=== PATIENT | female | born 1950 | race Caucasian/White ===

== ENCOUNTER → 2018-01-14 | Outpatient (CLI) | payer BC, MEDICARE, MEDICAID ==
[~2018-01-14] MED LIST: CLON-528 PO; COR3.125T PO; CYAN100061 IM; DULO-31 PO; LEVO50TA67 PO; MSC30T PO; OMEP-84 PO; TOP25T PO; [UNRECOGNIZED DRUG - CODE] PO
== END | disposition home or self-care (01) ==
LOC: VAS 08:54
PROVIDERS: ATTEND Surgery
DX: R60.0 Localized edema (principal); F10.10 Alcohol abuse, uncomplicated; F17.200 Nicotine dependence, unspecified, uncomplicated; I10 Essential (primary) hypertension; J44.9 Chronic obstructive pulmonary disease, unspecified; K21.9 Gastro-esophageal reflux disease without esophagitis; E11.9 Type 2 diabetes mellitus without complications; Z79.899 Other long term (current) drug therapy; Z96.653 Presence of artificial knee joint, bilateral
CPT/HCPCS: 93970

== ENCOUNTER 2018-03-30 18:18 | Emergency (ER) | payer BC, MEDICARE, MEDICAID ==
[~2018-03-30] VITALS: Ht 175.3 cm; Wt 54.5 kg
[2018-03-30 18:24] VITALS: BP 165/93
== END 2018-03-30 21:57 | disposition home or self-care (01) ==
LOC: ER 18:19
DX: S50.12XA Contusion of left forearm, initial encounter (principal); S50.11XA Contusion of right forearm, initial encounter; G89.29 Other chronic pain; R51 Headache; F32.9 Major depressive disorder, single episode, unspecified; F17.200 Nicotine dependence, unspecified, uncomplicated; K21.9 Gastro-esophageal reflux disease without esophagitis; J44.9 Chronic obstructive pulmonary disease, unspecified; Z88.1 Allergy status to other antibiotic agents; Z86.73 Personal history of transient ischemic attack (TIA), and cerebral infarction without residual deficits; W19.XXXA Unspecified fall, initial encounter; Y93.89 Activity, other specified; Y92.89 Other specified places as the place of occurrence of the external cause; Y99.8 Other external cause status
CPT/HCPCS: 70450; 99284